=== PATIENT | male | born 1985 | race Caucasian/White ===

== ENCOUNTER 2019-09-24 10:39 | Emergency (ER) | payer BC, OTHER ==
[2019-09-24] MEDS ORDERED: NS 0.9% 1000 ML** 2,000 ML IV ONE (10:57)
--- NOTE | 2019-09-24 11:03 | ED ---
Dizziness - HPI Summary HPI Summary: This pt is a 33 Y/O M presenting to [facility] with a CC of dizziness described as lightheaded that started this morning. He states that he was diagnosed with Influenza B at yesterday. He states that he ate and has drunk more water than usual but remains dizzy. He states that he has been feeling extremely weak and has had multiple episodes of diarrhea. He denies any SOB or CP. He states that he has had his symptoms since 09/18/2019. He states that he has been losing weight since the onset of his symptoms. He has no aggravating or alleviating factors. He states that his position does not affect his symptoms. He has no pertinent PMHx but does have a FHx of HTN. - History Of Current Complaint Chief Complaint: EDDizziness Stated Complaint: FLU B POSITIVE FOR A WEEK NOT BETTER Time Seen by Provider: 09/24/19 10:51 Hx Obtained From: Patient Last Known Well Date: 09/17/2019 Onset/Duration: Unknown, Still Present Timing: Constant Severity Initially: Moderate Severity Currently: Moderate Character: Lightheaded Aggravating Factor(s): Nothing Alleviating Factor(s): Nothing Associated Signs And Symptoms: Positive: Diarrhea, Other: - weakness. Negative : Chest Pain, SOB - Allergies/Home Medications Allergies/Adverse Reactions: Allergies Allergy/AdvReac Type Severity Reaction Status Date / Time No Known Allergies Allergy Verified 09/24/19 10:44 PMH/Surg Hx/FS Hx/Imm Hx Previously Healthy: Yes Endocrine/Hematology History: Denies: Hx Diabetes, Hx Anemia Cardiovascular History: Denies: Hx Cardiac Arrest, Hx Congestive Heart Failure Respiratory History: Denies: Hx Asthma - Cancer History Hx Chemotherapy: No Hx Radiation Therapy: No - Surgical History Surgical History: None - Immunization History Immunizations Up to Date: Yes Infectious Disease History: No Infectious Disease History: Denies: Traveled Outside the [place] in Last 30 Days - Family History Known Family History: Positive: Cardiac Disease - Paternal , Hypertension - Social History Occupation: Employed Full-time Lives: With Family Alcohol Use: None Hx Substance Use: No Substance Use Type: Reports: None Hx Tobacco Use: No Smoking Status (MU): Never Smoked Tobacco Household Exposure: No Review of Systems Positive: Other - lightheaded Negative: Chest Pain Negative: Shortness Of Breath Positive: Diarrhea Positive: Weakness All Other Systems Reviewed And Are Negative: Yes Physical Exam - Summary Physical Exam Summary: VITAL SIGNS: Reviewed. GENERAL: Patient is a well-developed and nourished male who is lying comfortable in the stretcher. Patient is not in any acute respiratory distress. HEAD AND FACE: No signs of trauma. No ecchymosis, hematomas or skull depressions. No sinus tenderness. EYES: PERRLA, EOMI x 2, No injected conjunctiva, no nystagmus. EARS: Hearing grossly intact. Ear canals and tympanic membranes are within normal limits. MOUTH: Oropharynx within normal limits. NECK: Supple, trachea is midline, no adenopathy, no JVD, no carotid bruit, no c- spine tenderness, neck with full ROM. CHEST: Symmetric, no tenderness at palpation LUNGS: Clear to auscultation bilaterally. No wheezing or crackles. CVS: Regular rate and rhythm, S1 and S2 present, no murmurs or gallops appreciated. ABDOMEN: Soft, non-tender. No signs of distention. No rebound no guarding, and no masses palpated. Bowel sounds are normal. EXTREMITIES: FROM in all major joints, no edema, no cyanosis or clubbing. NEURO: Alert and oriented x 3. No acute neurological deficits. Speech is normal and follows commands. SKIN: Dry and warm Triage Information Reviewed: Yes Vital Signs On Initial Exam: Initial Vitals Temp Pulse Resp BP Pulse Ox 98.6 F 89 17 141/83 96 09/24/19 10:42 09/24/19 10:42 09/24/19 10:42 09/24/19 10:42 09/24/19 10:42 Vital Signs Reviewed: Yes Procedures - Sedation Patient Received Moderate/Deep Sedation with Procedure: No Diagnostics - Vital Signs Vital Signs Temp Pulse Resp BP Pulse Ox 09/24/19 10:42 98.6 F 89 17 141/83 96 - Laboratory Result Diagrams: 09/24/19 11:09 09/24/19 11:09 Lab Statement: Any lab studies that have been ordered have been reviewed, and results considered in the medical decision making process. Dizzy Course/Dx - Course Assessment/Plan: This pt is a 33 Y/O M presenting to [facility] with a CC of dizziness described as lightheaded that started this morning. He states that he was diagnosed with Influenza B at yesterday. He states that he ate and has drunk more water than usual but remains dizzy. He states that he has been feeling extremely weak and has had multiple episodes of diarrhea. He denies any SOB or CP. He states that he has had his symptoms since 09/18/2019. He states that he has been losing weight since the onset of his symptoms. He has no aggravating or alleviating factors. He states that his position does not affect his symptoms. He has no pertinent PMHx but does have a FHx of HTN. Blood work without a significant abnormality. In the ED course the patient was given IV fluids for his dehydration. After patient medications the patients symptoms are resolved. Patient is hemodynamically stable alert oriented 3. I discussed all the findings and test results with the patient. Patient was instructed to return to the emergency room immediately if any of the symptoms return worsens. Plan of care was discussed with the patient and understands and agrees. All questions were answered at patient satisfaction. There were no further complaints or concerns. Lung exam before discharge: CTA B/L. Good air exchange. No wheezing or crackles heard. CVS: S1 and S2 present. No murmurs appreciated. Patient is alert and oriented x 3. Patient is hemodynamically stable. Patient will be discharged home with follow up PCP in the next 2-3 days - Diagnoses Provider Diagnoses: Influenza Discharge ED - Sign-Out/Discharge Documenting (check all that apply): Patient Departure - discharge - Discharge Plan Condition: Stable Disposition: HOME Patient Education Materials: Dehydration (ED), Influenza (ED), Lightheadedness (ED) Referrals: [facility] [Outside] - 2 Days Additional Instructions: PLEASE FOLLOW UP WITH THE [facility] IN 1-3 DAYS TO BE SET UP WITH A PRIMARY CARE PHYSICIAN. RETURN TO THE EMERGENCY DEPARTMENT FOR ANY NEW OR WORSENING SYMPTOMS. Please increase fluid intake while at home to prevent dehydration and get plenty of rest. - Billing Disposition and Condition Condition: STABLE Disposition: Home - Attestation Statements Document Initiated by Morena: Yes Documenting Scribe: Elpidio Cordoba Provider For Whom Morena is Documenting (Include Credential): Anderson Cunningham MD Scribe Attestation: Elpidio [place] scribed for Anderson Cunningham MD on 09/24/19 at 1814. Scribe Documentation Reviewed: Yes Provider Attestation: The documentation as recorded by the Elpidio portillo accurately reflects the service I personally performed and the decisions made by me, Anderson Cunningham MD Status of Morena Document: Viewed
[2019-09-24 11:24] LABS: ABS Lymphocytes 1.1 10^3/ul (1.0-4.8); ABS Monocytes 0.7 10^3/ul (0-0.8); Eosinophil % 0.4 %; Hematocrit 44 % (42-52); Hemoglobin 15.5 g/dL (14.0-18.0); Lymphocyte % 40.1 %; Mean Corpuscular HGB Conc 35 g/dL (31-36); Mean Corpuscular Hemoglobin 31 pg (27-31); Mean Corpuscular Volume 89 fL (80-94); Mean Platelet Volume 9.2 fL (7.4-10.4); Nucleated Red Blood Cells % 0.1; Platelet Count 129 10^3/uL (150-450); Red Blood Count 4.93 10^6 /uL (4.18-5.48); Red Cell Distribution Width 12 % (10-15); White Blood Count 2.8 10^3/uL (3.5-10.8)
[2019-09-24 11:40] LABS: Albumin 4.4 g/dL (3.2-5.2); Albumin/Globulin Ratio 1.6 (1-3); BUN/Creatinine Ratio 14.4 (8-20); C Reactive Protein 1.97 mg/L (<8.01); Calcium 8.8 mg/dL (8.6-10.3); EGFR African American 98.3 (>60); EGFR Non-African American 81.3 (>60); Globulin 2.7 g/dL (2-4); Potassium 3.5 mmol/L (3.5-5.0); Total Bilirubin 0.4 mg/dL (0.2-1.0); Total Protein 7.1 g/dL (6.4-8.9)
[2019-09-24 11:57] LABS: Urine Appearance Clear; Urine Bilirubin Negative (Negative); Urine Blood Negative (Negative); Urine Color Yellow; Urine Glucose Negative (Negative); Urine Ketones Negative (Negative); Urine Nitrite Negative (Negative); Urine Protein Negative (Negative); Urine Specific Gravity 1.005 (1.010-1.030); Urine Urobilinogen Negative (Negative)
[2019-09-24 13:25] VITALS: BP 139/89
== END 2019-09-24 13:24 | disposition home or self-care (01) ==
LOC: ED 10:39
DX: J11.1 Influenza due to unidentified influenza virus with other respiratory manifestations (principal)
CPT/HCPCS: 36415; 80053; 81003; 83605; 85025; 86140; 96360; 99282